=== PATIENT | male | born 1985 | race Caucasian/White ===

== ENCOUNTER → 2020-08-23 | Outpatient (CLI) | payer BC, OTHER ==
[~2020-08-23] MED LIST: FLEXERIL 10 MG10 MG PO; IBUPROFEN800 MG PO; LODINE CAP 300300 MG PO
== END ==
LOC: RAD 19:32
DX: M05.79 Rheumatoid arthritis with rheumatoid factor of multiple sites without organ or systems involvement (principal); M25.511 Pain in right shoulder; M25.512 Pain in left shoulder; M25.561 Pain in right knee; M25.562 Pain in left knee; M79.641 Pain in right hand; M79.642 Pain in left hand; L40.9 Psoriasis, unspecified; Z79.899 Other long term (current) drug therapy
CPT/HCPCS: 73030; 73130; 73562

== ENCOUNTER 2021-09-16 22:43 | Emergency (ER) | payer BC ==
[2021-09-16 23:44] LABS: HEMOGLOBIN 15.5 gm/dl (14.0-17.5); RED BLOOD COUNT 5.05 M/UL (4.20-5.50); WHITE BLOOD COUNT 9.9 K/UL (4.5-11.0)
[2021-09-17 00:02] LABS: BUN/CREATININE RATIO 14 (0-10)
== END 2021-09-17 02:20 | disposition home or self-care (01) ==
LOC: ER1 22:43
PROVIDERS: Physician Assistant
DX: E16.2 Hypoglycemia, unspecified (principal); Z90.89 Acquired absence of other organs; Z88.0 Allergy status to penicillin; F17.210 Nicotine dependence, cigarettes, uncomplicated
CPT/HCPCS: 80053; 82962; 85025; 99284